=== PATIENT | female | born 1940 | race Caucasian/White ===

== ENCOUNTER 2018-07-24 13:52 | Observation (INO) | payer MEDICARE, MEDICAID ==
[~2018-07-24] VITALS: Ht 160 cm; Wt 100.8 kg
[~2018-07-24 13:52] MED LIST changes: -FLUO-177 PO; -HYDR-4228 PO; -LEVO175T42 PO; -LIDO700A19 TP
[2018-07-24] MEDS ORDERED: NS(*) 0.9% 500 ML BAG 500 ML IV ONE (14:08)
--- NOTE | 2018-07-24 14:08 | ER Report ---
History and Physical Time Seen By MD: 14:00 Hx. of Stated Complaint: patient fell a couple days ago, patient states that she doesnt remember the fall but her left hip hurts; patients insurance healthcare consultant called because the patient is weak and increased lethargic HPI/ROS CHIEF COMPLAINT: Fall, increasing weakness HISTORY OF PRESENT ILLNESS: 78-year-old female patient presents to emergency room with complaint of fall and weakness. Patient states that she fell 2 days ago. She states she is unable to recall the fall, but she does have hip pain and abdominal pain. Patient states that she's not having nausea, vomiting or diarrh ea. Caregiver states that she has had increasing weakness since her fall. Patient denies any shortness of breath, chest pain. Patient states she does have some mild left hip pain. REVIEW OF SYSTEMS: Respiratory: No cough, no dyspnea. Cardiovascular: No chest pain, no palpitations. Gastrointestinal: No vomiting, no abdominal pain. Musculoskeletal: As noted above Allergies: Coded Allergies: Penicillins (Unverified Allergy, Unknown, 09/12/16) Home Meds Active Scripts Diphenhydramine Hcl (DIPHENHYDRAMINE HCL) 25 Mg Capsule, 25 MG PO Q6H PRN for a llergic reaction, #30 CAPSULE Prov:FREDERICK ALBERTS MD 08/27/16 Trazodone Hcl (TRAZODONE HCL) 50 Mg Tablet, 25 MG PO QHS, #30 TAB Prov:FREDERICK ALBERTS MD 08/27/16 Ranitidine Hcl (RANITIDINE HCL) 150 Mg Tablet, 150 MG PO BID, #60 TAB Prov:FREDERICK ALBERTS MD 08/27/16 Epinephrine (EPIPEN 2-RJ) 0.3 Mg/0.3 Ml Pen.injctr, 0.3 MG IM ONLY Q5MIN PRN for increased tongue swelling, #1 BOX 6 Refills Prov:FREDERICK ALBERTS MD 08/27/16 Reported Medications Levothyroxine Sodium (LEVOTHYROXINE SODIUM) 100 Mcg Tablet, 150 MCG PO QDAY, TAB 08/24/16 Past Medical/Surgical History Patient has a past medical history of seizures, COPD, arthritis, hypothyroidism, marijuana abuse, alcohol abuse. Patient has a surgical history of tubal ligation, hernia repair, hysterectomy. Reviewed Nurses Notes: Yes Hx Smoking: No Smoking Status: Former Smoker Exposure to Second Hand Smoke?: No Hx Substance Use Disorder: Yes (pot) Hx Alcohol Use: Yes Constitutional Vital Sign - Last 24 Hours 07/24/18 07/24/18 07/24/18 13:55 14:26 15:11 Temp 97.5 Pulse 81 Resp 18 B/P (MAP) 134/89 Pulse Ox 92 91 O2 Delivery Room Air Oxy Mask O2 Flow Rate 6.0 8.0 Physical Exam General Appearance: The patient is alert, has no immediate need for airway protection and no current signs of toxicity. Respiratory: Chest is non tender, lungs are clear to auscultation. Cardiac: regular rate and rhythm Gastrointestinal: Abdomen is soft and tender in the left upper and lower quadrants, no masses, bowel sounds normal. Musculoskeletal: Neck: Neck is supple and non tender. Extremities have full range of motion and are non tender. Tenderness to the left hip. Skin: No rashes or lesions. DIFFERENTIAL DIAGNOSIS: After history and physical exam differential diagnosis was considered for contusion, fracture, urinary tract infection, sepsis, [place]. Medical Decision Making Data Points Result Diagram: 07/24/18 1411 07/24/18 1411 Laboratory Hematology Test 07/24/18 14:11 07/24/18 14:25 Red Blood Count 5.75 M/uL (4.17-5.56) Mean Corpuscular Volume 86.7 fL (80.0-96.0) Mean Corpuscular Hemoglobin 28.6 pg (26.0-33.0) Mean Corpuscular Hemoglobin Concent 33.0 g/dL (32.0-36.0) Red Cell Distribution Width 13.4 % (11.5-14.5) Mean Platelet Volume 7.9 fL (7.2-11.1) Neutrophils (%) (Auto) 53.9 % (39.4-72.5) Lymphocytes (%) (Auto) 29.4 % (17.6-49.6) Monocytes (%) (Auto) 12.3 % (4.1-12.4) Eosinophils (%) (Auto) 3.0 % (0.4-6.7) Basophils (%) (Auto) 1.4 % (0.3-1.4) Nucleated RBC Relative Count (auto) 0.0 /100WBC Neutrophils # (Auto) 3.8 K/uL (2.0-7.4) Lymphocytes # (Auto) 2.0 K/uL (1.3-3.6) Monocytes # (Auto) 0.9 K/uL (0.3-1.0) Eosinophils # (Auto) 0.2 K/uL (0.0-0.5) Basophils # (Auto) 0.1 K/uL (0.0-0.1) Nucleated RBC Absolute Count (auto) 0.00 K/uL Prothrombin Time 12.3 seconds (12.0-14.4) Prothromb Time International Ratio 0.92 Activated Partial Thromboplast Time 30 seconds (23-35) Sodium Level 139 mmol/L (137-145) Potassium Level 4.2 mmol/L (3.5-5.0) Chloride Level 104 mmol/L (98-107) Carbon Dioxide Level 28 mmol/L (22-31) Blood Urea Nitrogen 11 mg/dl (7-18) Creatinine 0.90 mg/dl (0.52-1.04) Glomerular Filtration Rate Calc > 60.0 Random Glucose 108 mg/dl (75-110) Lactate 1.3 mmol/L (0.7-2.1) Calcium Level 8.8 mg/dl (8.4-10.2) Total Bilirubin 0.3 mg/dl (0.2-1.3) Aspartate Amino Transf (AST/SGOT) 19 U/L (0-35) Alanine Aminotransferase (ALT/SGPT) 23 U/L (0-56) Alkaline Phosphatase 75 U/L (0-126) Troponin I < 0.012 ng/ml Total Protein 6.6 g/dl (6.3-8.2) Albumin 3.7 g/dl (3.5-5.0) Serum Alcohol < 10 mg/dl Urine Color Yellow Urine Clarity Cloudy Urine pH 5.0 pH (4.8-9.5) Urine Specific Wilson 1.024 Urine Protein Negative mg/dL (NEGATIVE) Urine Glucose (UA) Negative mg/dL (NEGATIVE) Urine Ketones Negative mg/dL (NEGATIVE) Urine Blood Negative (NEGATIVE) Urine Nitrite Negative (NEGATIVE) Urine Bilirubin Negative (NEGATIVE) Urine Urobilinogen 2.0 mg/dL (0.2-1.9) Urine Leukocyte Esterase Negative (NEGATIVE) Urine RBC None /HPF (0-2/HPF) Urine WBC 1 /HPF (0-5/HPF) Urine Squamous Epithelial Cells Few /LPF (NONE-FEW) Urine Calcium Oxalate Crystals Few /HPF (NONE) Urine Bacteria Few /HPF (NONE-FEW) Urine Mucus Few /HPF (NONE-FEW) Urine Opiates Screen Negative Urine Barbiturates Screen Negative Ur Tricyclic Antidepressants Screen Negative Urine Phencyclidine Screen Negative Urine Amphetamines Screen Negative Urine Benzodiazepines Screen Positive Urine Cocaine Screen Negative Urine Cannabinoids Screen Positive Chemistry Test 07/24/18 14:11 07/24/18 14:25 White Blood Count 7.0 k/uL (4.5-11.0) Red Blood Count 5.75 M/uL (4.17-5.56) Hemoglobin 16.5 g/dL (12.0-16.0) Hematocrit 49.9 % (34.0-47.0) Mean Corpuscular Volume 86.7 fL (80.0-96.0) Mean Corpuscular Hemoglobin 28.6 pg (26.0-33.0) Mean Corpuscular Hemoglobin Concent 33.0 g/dL (32.0-36.0) Red Cell Distribution Width 13.4 % (11.5-14.5) Platelet Count 354 K/uL (150-450) Mean Platelet Volume 7.9 fL (7.2-11.1) Neutrophils (%) (Auto) 53.9 % (39.4-72.5) Lymphocytes (%) (Auto) 29.4 % (17.6-49.6) Monocytes (%) (Auto) 12.3 % (4.1-12.4) Eosinophils (%) (Auto) 3.0 % (0.4-6.7) Basophils (%) (Auto) 1.4 % (0.3-1.4) Nucleated RBC Relative Count (auto) 0.0 /100WBC Neutrophils # (Auto) 3.8 K/uL (2.0-7.4) Lymphocytes # (Auto) 2.0 K/uL (1.3-3.6) Monocytes # (Auto) 0.9 K/uL (0.3-1.0) Eosinophils # (Auto) 0.2 K/uL (0.0-0.5) Basophils # (Auto) 0.1 K/uL (0.0-0.1) Nucleated RBC Absolute Count (auto) 0.00 K/uL Prothrombin Time 12.3 seconds (12.0-14.4) Prothromb Time International Ratio 0.92 Activated Partial Thromboplast Time 30 seconds (23-35) Glomerular Filtration Rate Calc > 60.0 Lactate 1.3 mmol/L (0.7-2.1) Calcium Level 8.8 mg/dl (8.4-10.2) Total Bilirubin 0.3 mg/dl (0.2-1.3) Aspartate Amino Transf (AST/SGOT) 19 U/L (0-35) Alanine Aminotransferase (ALT/SGPT) 23 U/L (0-56) Alkaline Phosphatase 75 U/L (0-126) Troponin I < 0.012 ng/ml Total Protein 6.6 g/dl (6.3-8.2) Albumin 3.7 g/dl (3.5-5.0) Serum Alcohol < 10 mg/dl Urine Color Yellow Urine Clarity Cloudy Urine pH 5.0 pH (4.8-9.5) Urine Specific Wilson 1.024 Urine Protein Negative mg/dL (NEGATIVE) Urine Glucose (UA) Negative mg/dL (NEGATIVE) Urine Ketones Negative mg/dL (NEGATIVE) Urine Blood Negative (NEGATIVE) Urine Nitrite Negative (NEGATIVE) Urine Bilirubin Negative (NEGATIVE) Urine Urobilinogen 2.0 mg/dL (0.2-1.9) Urine Leukocyte Esterase Negative (NEGATIVE) Urine RBC None /HPF (0-2/HPF) Urine WBC 1 /HPF (0-5/HPF) Urine Squamous Epithelial Cells Few /LPF (NONE-FEW) Urine Calcium Oxalate Crystals Few /HPF (NONE) Urine Bacteria Few /HPF (NONE-FEW) Urine Mucus Few /HPF (NONE-FEW) Urine Opiates Screen Negative Urine Barbiturates Screen Negative Ur Tricyclic Antidepressants Screen Negative Urine Phencyclidine Screen Negative Urine Amphetamines Screen Negative Urine Benzodiazepines Screen Positive Urine Cocaine Screen Negative Urine Cannabinoids Screen Positive Coagulation Test 07/24/18 14:11 Prothrombin Time 12.3 seconds Prothromb Time International Ratio 0.92 Activated Partial Thromboplast Time 30 seconds Toxicology Test 07/24/18 14:11 07/24/18 14:25 Serum Alcohol < 10 mg/dl Urine Opiates Screen Negative Urine Barbiturates Screen Negative Ur Tricyclic Antidepressants Screen Negative Urine Phencyclidine Screen Negative Urine Amphetamines Screen Negative Urine Benzodiazepines Screen Positive Urine Cocaine Screen Negative Urine Cannabinoids Screen Positive Urinalysis Test 07/24/18 14:25 Urine Color Yellow Urine Clarity Cloudy Urine pH 5.0 pH (4.8-9.5) Urine Specific Wilson 1.024 Urine Protein Negative mg/dL (NEGATIVE) Urine Glucose (UA) Negative mg/dL (NEGATIVE) Urine Ketones Negative mg/dL (NEGATIVE) Urine Blood Negative (NEGATIVE) Urine Nitrite Negative (NEGATIVE) Urine Bilirubin Negative (NEGATIVE) Urine Urobilinogen 2.0 mg/dL (0.2-1.9) Urine Leukocyte Esterase Negative (NEGATIVE) Urine RBC None /HPF (0-2/HPF) Urine WBC 1 /HPF (0-5/HPF) Urine Squamous Epithelial Cells Few /LPF (NONE-FEW) Urine Calcium Oxalate Crystals Few /HPF (NONE) Urine Bacteria Few /HPF (NONE-FEW) Urine Mucus Few /HPF (NONE-FEW) EKG/Imaging EKG Interpretation 12 lead EKG: Rhythm: normal sinus rhythm with a ventricular rate of 73 beats for minute Gabbs: normal QRS: normal ST segments: normal Imaging CHEST/AB/PELV W/CONTRAST HISTORY: fall, pain to left chest, abdomen ADDITIONAL HISTORY: None. TECHNIQUE: Following administration of IV contrast axial images acquired through the chest abdomen and pelvis during the portal venous phase. Coronal and sagittal reformatting was also performed.Dose Lowering Technique One of the following dose optimization techniques was utilized in the performance of this exam: Automated exposure control; adjustment of the mA and/or kV according to the patient's size; or use of an iterative reconstruction technique. Specific details can be referenced in the facility's radiology CT exam operational policy. CONTRAST: 75 mL Isovue-370 COMPARISON: CTA chest September 22, [address] lumbar spine July 13, 2016 FINDINGS: CHEST: Lungs/Pleura: There is motion artifact present. No gross evidence of focal pulmonary consolidation, pleural effusion, pneumothorax or pneumomediastinum. Mediastinum/lymph nodes: Negative. Heart/vessels: There mild calcifications in the aortic arch and branch vessels Bones/soft tissues: There are multiple old appearing bilateral rib fractures ABDOMEN AND PELVIS: Hepatobiliary: Negative. Spleen: Calcified granuloma Pancreas: Negative. Adrenals: Negative. Kidneys ureters and bladder : There bilateral renal hypodensities most are too small to characterize by CT although may represent cysts the largest cyst along the anterior aspect of the right kidney measuring 1.3 cm in diameter and does appear to represent a cyst by CT Hounsfield units Genitalia: There are postsurgical changes from hysterectomy. There is a 3.2 cm left ovarian cyst GI: There is an anastomotic staple line in the sigmoid colon. There is a small hiatal hernia Vessels/spaces/nodes: There are moderate vascular calcifications in the abdominal aorta and branch vessels Bones/soft tissues: There is a moderate to severe compression fracture of L2. There was a mild compression fracture of this vertebral body on the prior CT lumbar spine dated July 13, 2016 . There are moderate spondylotic changes L4-5 and L5-S1. There is no demonstration of an acute pelvic or hip fracture. There is soft tissue edema seen in the subcutaneous fat along the anterior left lateral mid abdominal wall. In the subcutaneous fat along the lower left abdomen there is an ovoid soft tissue density process measuring 6.1 x 4.5 x 1.9 cm likely a subcutaneous hematoma Additional findings: None pertinent. IMPRESSION: Multiple old appearing bilateral rib fractures There is moderate severe compression fracture of L2 vertebral body. There was a mild compression fracture in this location on a prior CT dated July 13 6. No demonstration of an acute pelvic or hip fracture. There is soft tissue edema in the subcutaneous fat along the anterior left lateral mid abdominal wall. Also the subcutaneous fat along the lower left abdomen is an ovoid soft tissue density process likely representing a subcutaneous hematoma 3.2 cm left ovarian cyst Small hiatal hernia Additional chronic or nonemergent findings as described Report Dictated By: Brit Vance MD at 07/24/2018 3:17 PM Report E-Signed By: Brit Vance MD at 07/24/2018 4:[address] Head without contrast Indication: Fall and hit head. Comparison: 08/24/2016. Technique: Axial CT images were obtained through the brain from the skull base to the vertex without administration of IV contrast. Reformatted coronal and sagittal images were also obtained. One of the following dose optimization techniques was utilized in the performa nce of this exam: automated exposure control; adjustment of the mA and/or kV according to the patient's size; or use of an iterative reconstruction technique. Specific details can be referenced in the facility's radiology CT exam operational policy. Findings: No evidence of mass, mass effect, or midline shift. No acute intracranial hemorrhage or acute territorial infarction. No extra-axial fluid collection or hydrocephalus. Age-related cerebral atrophy. Mild periventricular white matter ischemic changes consistent small vessel disease. Sanders/white matter differentiation appears normal. Bony structures show no fractures or lesions. Mild rightward deviation nasal septum. The visualized paranasal sinuses and mastoid air cells are clear. IMPRESSION: 1. Senescent changes without acute abnormality. Report Dictated By: Grey Pike at 07/24/2018 3:22 PM Report E-Signed By: Grey Pike at 07/24/2018 3:27 PM ED Course/Re-evaluation ED Course Patient was admitted to exam room, history and physical were obtained. Differential diagnoses were considered. On examination patient had tenderness to the left side of the abdomen, no chest pain, was tender to the scalp, as well as the left hip. Patient did have a fall approximately 2 days ago. A CBC, CMP, urinalysis, drug screen were done. Labs were unremarkable except for the drug screen, which did show positive cannabis as well as positive benzodiazepines. CT scan of the head and chest abdomen pelvis were done. Head was negative, chest abdomen pelvis were negative for any acute processes, however they did note that there was a worsening of the compression fracture L2 which currently is moderate ly severe. I discussed the findings with the patient. Patient states she would prefer to go home. We did attempt to get the patient up, however the patient needed significant amounts of help with ambulation. As a result of that we will go ahead and admit her. I discussed the case with Dr. Mcgee, hospitalist, who agreed to accept the patient for admission. I do have concerns that the patient may have overdone it with the benzodiazepines and has caused some hypoxia, patient is currently on 8 L here in the emergency room and satting in the mid to low 90s. I anticipate that as she clears that out of her system that she will start to feel better and will be allowed to be discharged home. Decision to Disposition Date: Jul 24, 2018 Decision to Disposition Time: 16:56 Depart Departure Latest Vital Signs Vital Signs Date Time Temp Pulse Resp B/P (MAP) Pulse Ox O2 Delivery O2 Flow Rate FiO2 07/24/18 15:11 8.0 07/24/18 14:26 91 Oxy Mask 07/24/18 13:55 97.5 81 18 134/89 Impression: Primary Impression: Compression fracture Additional Impressions: Hypoxia Fall Condition: Condition Unchanged Disposition: Admitted from ER Problem Qualifiers Additional Impressions: Fall Encounter type: initial encounter Qualified Codes: W19.XXXA - Unspecified fall, initial encounter NIC WHITE Jul 24, 2018 14:08
[2018-07-24] MEDS ORDERED: IOPAMIDOL 76% 75 ML INFUS BTL 75 ML ONE (14:22)
[2018-07-24 14:23] LABS: PLATELET COUNT, AUTOMATED 354 K/uL (150-450)
[2018-07-24 14:27] LABS: INR 0.92
--- NOTE | 2018-07-24 15:30 | RADIOLOGY IMAGING REPORT ---
FACILITY: [facility] - [place] PATIENT NAME: Ankita Rivera : 1940 MR: [id number] V: [id number] EXAM DATE: ORDERING PHYSICIAN: NIC WHITE TECHNOLOGIST: Location: [facility] - [place] Patient: Ankita Rivera : 1940 Visit/Account:[id number] Date of Sevice: 07/24/2018 CT Head without contrast Indication: Fall and hit head. Comparison: 08/24/2016. Technique: Axial CT images were obtained through the brain from the skull base to the vertex without administration of IV contrast. Reformatted coronal and sagittal images were also obtained. One of the following dose optimization techniques was utilized in the performance of this exam: autom ated exposure control; adjustment of the mA and/or kV according to the patient's size; or use of an i terative reconstruction technique. Specific details can be referenced in the facility's radiology CT exam operational policy. Findings: No evidence of mass, mass effect, or midline shift. No acute intracranial hemorrhage or acute territorial infarction. No extra-axial fluid collection or hydrocephalus. Age-related cerebral atrophy. Mild periventricula r white matter ischemic changes consistent small vessel disease. Sanders/white matter differentiation a ppears normal. Bony structures show no fractures or lesions. Mild rightward deviation nasal septum. The visualized paranasal sinuses and mastoid air cells are clear. IMPRESSION: 1. Senescent changes without acute abnormality. Report Dictated By: Grey Pike at 07/24/2018 3:22 PM Report E-Signed By: Grey Pike at 07/24/2018 3:27 PM WSN:[email or web address]
--- NOTE | 2018-07-24 16:16 | RADIOLOGY IMAGING REPORT ---
FACILITY: [facility] - [place] PATIENT NAME: Ankita Rivera : 1940 MR: [id number] V: [id number] EXAM DATE: ORDERING PHYSICIAN: NIC WHITE TECHNOLOGIST: Location: [facility] - [place] Patient: Ankita Rivera : 1940 Visit/Account:[id number] Date of Sevice: 07/24/2018 CHEST/AB/PELV W/CONTRAST HISTORY: fall, pain to left chest, abdomen ADDITIONAL HISTORY: None. TECHNIQUE: Following administration of IV contrast axial images acquired through the chest abdomen a nd pelvis during the portal venous phase. Coronal and sagittal reformatting was also performed.Dose Lowering Technique One of the following dose optimization techniques was utilized in the performance of this exam: Autom ated exposure control; adjustment of the mA and/or kV according to the patient's size; or use of an i terative reconstruction technique. Specific details can be referenced in the facility's radiology C T exam operational policy. CONTRAST: 75 mL Isovue-370 COMPARISON: CTA chest September 22, [address] lumbar spine July 13, 2016 FINDINGS: CHEST: Lungs/Pleura: There is motion artifact present. No gross evidence of focal pulmonary consolidation, pleural effusion, pneumothorax or pneumomediastinum. Mediastinum/lymph nodes: Negative. Heart/vessels: There mild calcifications in the aortic arch and branch vessels Bones/soft tissues: There are multiple old appearing bilateral rib fractures ABDOMEN AND PELVIS: Hepatobiliary: Negative. Spleen: Calcified granuloma Pancreas: Negative. Adrenals: Negative. Kidneys ureters and bladder : There bilateral renal hypodensities most are too small to characterize by CT although may represent cysts the largest cyst along the anterior aspect of the right kidney reinier suring 1.3 cm in diameter and does appear to represent a cyst by CT Hounsfield units Genitalia: There are postsurgical changes from hysterectomy. There is a 3.2 cm left ovarian cyst GI: There is an anastomotic staple line in the sigmoid colon. There is a small hiatal hernia Vessels/spaces/nodes: There are moderate vascular calcifications in the abdominal aorta and branch v essels Bones/soft tissues: There is a moderate to severe compression fracture of L2. There was a mild comp ression fracture of this vertebral body on the prior CT lumbar spine dated July 13, 2016 . Ther e are moderate spondylotic changes L4-5 and L5-S1. There is no demonstration of an acute pelvic or h ip fracture. There is soft tissue edema seen in the subcutaneous fat along the anterior left lateral mid abdominal wall. In the subcutaneous fat along the lower left abdomen there is an ovoid soft tissue density pr ocess measuring 6.1 x 4.5 x 1.9 cm likely a subcutaneous hematoma Additional findings: None pertinent. IMPRESSION: Multiple old appearing bilateral rib fractures There is moderate severe compression fracture of L2 vertebral body. There was a mild compression fra cture in this location on a prior CT dated July 13, 2016. No demonstration of an acute pelvic or hip fracture. There is soft tissue edema in the subcutaneous fat along the anterior left lateral mid abdominal wall . Also the subcutaneous fat along the lower left abdomen is an ovoid soft tissue density process lik ramos representing a subcutaneous hematoma 3.2 cm left ovarian cyst Small hiatal hernia Additional chronic or nonemergent findings as described Report Dictated By: Brit Vance MD at 07/24/2018 3:17 PM Report E-Signed By: Brit Vance MD at 07/24/2018 4:11 PM WSN:[email or web address]
[2018-07-24] MEDS ORDERED: FLUSH 10 ML SYR IVP PRN (17:35)
[2018-07-24] MEDS ORDERED: ONDANSETRON 4 MG/2 ML VIAL IVP PRN (17:35)
[2018-07-24] MEDS: NS(*) 0.9% 1000 ML BAG 1,000 ML IV PRN (18:05)
[2018-07-24] MEDS ORDERED: HYDR-4228 PO (18:31)
[2018-07-24] MEDS ORDERED: FLUO-177 PO (18:31)
[2018-07-24] MEDS ORDERED: TRAZ100T31 PO (18:31)
[2018-07-24] MEDS ORDERED: TRAM-420 PO (18:31)
[2018-07-24] MEDS ORDERED: LEVO175T42 PO (18:31)
[2018-07-24 18:36] VITALS: BP 123/50
--- NOTE | 2018-07-24 19:39 | History & Physical ---
History of Present Illness Chief Complaint Hypoxia History of Present Illness 78F presented to ER with complaint of fall 2 days ago. Found to be lethargic and periodically hypoxic. Labs and imaging are all WNL. She was recommended for admission based on hypoxia. UDS positive for marijuana and benzodiazepines, she denies using either for several weeks. She reports she uses O2 at home but is unable to tell me how much. Patient appears intoxicated and has periodic apneic episodes which are causing hypoxia. History Unable To Obtain Past Medical: Unable to Obtain/Update Home Meds Active Scripts Diphenhydramine Hcl (DIPHENHYDRAMINE HCL) 25 Mg Capsule, 25 MG PO Q6H PRN for allergic reaction, #30 CAPSULE Prov:FREDERICK ALBERTS MD 08/27/16 Epinephrine (EPIPEN 2-RJ) 0.3 Mg/0.3 Ml Pen.injctr, 0.3 MG IM ONLY Q5MIN PRN for increased tongue swelling, #1 BOX 6 Refills Prov:FREDERICK ALBERTS MD 08/27/16 Reported Medications Tramadol Hcl (TRAMADOL HCL) 50 Mg Tablet, 1 TAB PO Q6H PRN for PAIN, TAB 07/24/18 Fluoxetine Hcl (FLUOXETINE HCL) 20 Mg Capsule, 40 MG PO QAM, CAPSULE 07/24/18 Hydroxyzine Hcl (HYDROXYZINE HCL) 50 Mg Tablet, 50 MG PO BID PRN for ANXIETY 07/24/18 Trazodone Hcl (TRAZODONE HCL) 100 Mg Tablet, 1-2 TAB PO HS, TAB PRN PER RX AT [facility] 07/24/18 Levothyroxine Sodium (LEVOTHYROXINE SODIUM) 175 Mcg Tablet, 175 MCG PO QAM 07/24/18 Discontinued Reported Medications Levothyroxine Sodium (LEVOTHYROXINE SODIUM) 100 Mcg Tablet, 150 MCG PO QDAY, TAB 08/24/16 Discontinued Scripts Trazodone Hcl (TRAZODONE HCL) 50 Mg Tablet, 25 MG PO QHS, #30 TAB Prov:FREDERICK ALBERTS MD 08/27/16 Ranitidine Hcl (RANITIDINE HCL) 150 Mg Tablet, 150 MG PO BID, #60 TAB Prov:FREDERICK ALBERTS MD 08/27/16 Allergies: Coded Allergies: Penicillins (Unverified Allergy, Unknown, 09/12/16) Hx Smoking: No Smoking Status: Former Smoker Exposure to Second Hand Smoke?: No Hx Alcohol Use: Yes Hx Substance Use Disorder: Yes (pot) Review of Systems All Systems Reviewed/Normal: Yes, Except as Noted Cardiovascular: No Chest Pain Respiratory: No Shortness of Breath, No Cough Exam Vital Signs Vital Signs Date Time Temp Pulse Resp B/P (MAP) Pulse Ox O2 Delivery O2 Flow Rate FiO2 07/24/18 18:41 99 Nasal Cannula 5.0 07/24/18 18:37 74 07/24/18 18:36 97.4 12 123/50 (74) General Appearance: Awake, No Acute Distress, Afebrile Neuro: No Gross deficits ENT: Normal Cardiovascular: Normal Rhythm & Peripheral Pulses Respiratory: No Respiratory Distress GI: Abd Soft and Non-Tender Musculoskeletal: No Weakness/Pain Extremities: Soft and Non Tender, Warm, Pulses, Perfused Medical Decision Making Data Points Result Diagram: 07/24/18 1411 07/24/18 1411 Assessment and Plan Problems: (1) Hypoxia Status: Acute Assessment & Plan: ABG shows high pO2. Appears to saturate well while awake but when falls asleep needs increased O2. Will attempt to find out if she really has O2 at home and how much. (2) Compression fracture Status: Acute Assessment & Plan: L2 compression fracture, pain appears to be limited to L side. Has hematoma in abdominal wall on imaging in that area. Will try Lidoderm patch. (3) Polysubstance abuse Assessment & Plan: UDS positive for marijuana and benzodiazepines. Appears intoxicated and having periodic episodes apnea. Venous Thromboembolism Antithrombotics Is Pt On Any Antithrombotics?: Yes Exam Sepsis Risk: No Definite Risk BEATTY JANELLE GOOD DO Jul 24, 2018 19:39
[2018-07-24] MEDS: LIDOCAINE 5% PATCH TP SCH (20:05)
[2018-07-24] MEDS: PATCH REMOVAL 1 EA TP SCH (21:00)
[2018-07-24] MEDS: ACETAMINOPHEN 325 MG TAB PO PRN (22:07)
[2018-07-24 23:23] VITALS: BP 123/76
[2018-07-25 04:05] VITALS: BP 109/82
[2018-07-25] MEDS: NS(*) 0.9% 1000 ML BAG 1,000 ML IV PRN (04:25)
--- NOTE | 2018-07-25 05:31 | EKG ---
FACILITY: [facility] [place] PATIENT NAME: EMILIE LOCKHART : [id number] MR: [id number] V: [id number] EXAM DATE: ORDERING PHYSICIAN: NIC WHITE TECHNOLOGIST: Test Reason : Blood Pressure : / mmHG Vent. Rate : 073 BPM Atrial Rate : 073 BPM P-R Int : 132 ms QRS Dur : 082 ms QT Int : 428 ms P-R-T Axes : 030 013 062 degrees QTc Int : 471 ms Normal sinus rhythm Normal ECG When compared with ECG of 24-AUG-2016 12:35, No significant change was found Confirmed by Darron Hicks ([id number]) on 07/25/2018 7:30:04 AM Referred By: Confirmed By:Darron Navarrete
[2018-07-25 06:01] LABS: PLATELET COUNT, AUTOMATED 286 K/uL (150-450)
[2018-07-25 08:47] VITALS: BP 123/84
[2018-07-25] MEDS: ENOXAPARIN 40 MG/0.4ML SYR SC SCH (08:50)
[2018-07-25] MEDS: LIDOCAINE 5% PATCH TP SCH (08:50)
[2018-07-25] MEDS ORDERED: NS(*) 0.9% 1000 ML BAG 1,000 ML IV PRN (09:23)
--- NOTE | 2018-07-25 11:34 | Hospitalist Progress Note ---
Subjective Progress Notes Subjective She is now much more awake and alert. She does not recall much of valentín events over past 2 days. She now recalls taking two of her Xanax (1mg tabs) "a couple of days ago". Physical Exam Vital Signs Date Time Temp Pulse Resp B/P (MAP) Pulse Ox O2 Delivery O2 Flow Rate FiO2 07/25/18 08:47 97.6 64 16 123/84 (97) 94 Nasal Cannula 2.0 Intake and Output 07/25/18 07:00 Intake Total 1340 ml Output Total 100 ml Balance 1240 ml Intake Oral 360 ml IV Total 980 ml Output Urine Total 100 ml General Appearance: Alert, Awake Cardiovascular: Regular Rate and Rhythm Respiratory: Clear to Auscultation GI: Soft and Non-Tender Extremities: Warm, Perfused Result Diagram: 07/25/1852107/25/18521 Assessment and Plan Problems: (1) Hypoxia Status: Acute Assessment & Plan: ABG showed high pO2. Appears to saturate well while awake, but when falls asleep needs increased O2. She may have sleep related hypoxia/DEBBI and may need further evaluation. It appears she probably had an unintentional OD with the Xanax causing some respiratory suppression. I discussed this with the patient and she reports understanding. (2) Compression fracture Status: Acute Assessment & Plan: L2 compression fracture, pain appears to be limited. She has a small hematoma in abdominal wall on imaging in that area. Will use Lidoderm patch. (3) Polysubstance abuse Assessment & Plan: Urine Drug Screen positive for marijuana and benzodiazepines. It appears she may have been having periodic episodes apnea. She appears much more awake and alert. Exam Sepsis Risk: No Definite Risk SONAM ALBERTS MD Jul 25, 2018 11:34
[2018-07-25 11:53] VITALS: BP 141/80
--- NOTE | 2018-07-25 14:14 | NUR ---
Physical Therapy Impression PT eval complete. Pt required encouragement to participate in therapy evaluation. PT provided cues for log roll technique and pt completed with SBA. Stand pivot transfer from bed to chair completed with CGA and use of RW. Pt declined further mobility at this time. PT encouraged pt to start ambulating to bathroom with nursing staff. Physical Therapy Goals 1: Pt to complete bed mobility with Benjy 2: pt to complete transfers with SBA and least restrictive AD 3: Pt to ambulate 30' with SBA and least restrictive AD Patient's Goals
[2018-07-25] MEDS: ACETAMINOPHEN 325 MG TAB PO PRN (15:05)
[2018-07-25 15:06] VITALS: BP 150/83
[2018-07-25 16:55] VITALS: Ht 160 cm; Wt 100.8 kg
[2018-07-25] MEDS: PATCH REMOVAL 1 EA TP SCH (20:32)
[2018-07-25 20:44] VITALS: BP 143/73
[2018-07-26 00:45] VITALS: BP 128/77
[2018-07-26 04:28] VITALS: BP 127/63
[2018-07-26] MEDS: ACETAMINOPHEN 325 MG TAB PO PRN (06:43)
[2018-07-26 07:42] VITALS: BP 138/76
[2018-07-26] MEDS: ENOXAPARIN 40 MG/0.4ML SYR SC SCH (08:55)
[2018-07-26] MEDS: LIDOCAINE 5% PATCH TP SCH (08:55)
[2018-07-26] MEDS ORDERED: TRAM-420 PO (10:41)
[2018-07-26] MEDS ORDERED: LIDO700A19 TP (10:41)
--- NOTE | 2018-07-26 10:46 | Hospitalist Depart ---
Discharge Summary Reason for Hosp/Final Diag: (1) Hypoxia Status: Acute Hospital Course & Plan: She presented with ABG which showed high pO2, she appeared to saturate well while awake, but required increased oxygen during sleep. She may have sleep related hypoxia/DEBBI and may need further evaluation. It appears she probably had an unintentional OD with the Xanax causing some respiratory suppression. I discussed this with the patient and she reports understanding. (2) Compression fracture Status: Acute Hospital Course & Plan: L2 compression fracture, pain appears to be limited. She has a small hematoma in abdominal wall on imaging in that area. Will use Lidoderm patch for pain. (3) Polysubstance abuse Hospital Course & Plan: Urine Drug Screen positive for marijuana and benzodiazepines. It appears she may have been having periodic episodes apnea. She appears much more awake and alert. She was advised to stop taking Xanax. She will use Tramadol for pain. She will follow up with Dr. Pearce. Departure Latest Vital Signs Vital Signs 07/26/18 07/26/18 07:42 08:09 Temp 98.1 Pulse 59 Resp 20 B/P (MAP) 138/76 (96) Pulse Ox 92 O2 Delivery Nasal Cannula O2 Flow Rate 2.0 Weight (Pounds): 222 Weight (Ounces): 5.0 Result Diagram: 07/25/1852107/25/18521 Condition: Improved Discharge: Home, Self Care Discharge Instructions Home Meds Active Scripts Lidocaine (Lidocaine) 5 % Adh..patch, 1 EACH TP QDAY, #14 PATCH Prov:KATHY GARCIA [employer]ERK [employer] 07/26/18 Tramadol Hcl (TRAMADOL HCL) 50 Mg Tablet, 1 TAB PO Q6H PRN for PAIN, #20 TAB Prov:KATHY GARCIA [employer] 07/26/18 Diphenhydramine Hcl (DIPHENHYDRAMINE HCL) 25 Mg Capsule, 25 MG PO Q6H PRN for allergic reaction, #30 CAPSULE Prov:FREDERICK ALBERTS MD 08/27/16 Epinephrine (EPIPEN 2-RJ) 0.3 Mg/0.3 Ml Pen.injctr, 0.3 MG IM ONLY Q5MIN PRN for increased tongue swelling, #1 BOX 6 Refills Prov:FREDERICK ALBERTS MD 08/27/16 Reported Medications Fluoxetine Hcl (FLUOXETINE HCL) 20 Mg Capsule, 40 MG PO QAM, CAPSULE 07/24/18 Hydroxyzine Hcl (HYDROXYZINE HCL) 50 Mg Tablet, 50 MG PO BID PRN for ANXIETY 07/24/18 Trazodone Hcl (TRAZODONE HCL) 100 Mg Tablet, 1-2 TAB PO HS PRN for sleep, TAB PRN PER RX AT [facility] 07/24/18 Levothyroxine Sodium (LEVOTHYROXINE SODIUM) 175 Mcg Tablet, 175 MCG PO QAM 07/24/18 Discontinued Reported Medications Levothyroxine Sodium (LEVOTHYROXINE SODIUM) 100 Mcg Tablet, 150 MCG PO QDAY, TAB 08/24/16 Discontinued Scripts Trazodone Hcl (TRAZODONE HCL) 50 Mg Tablet, 25 MG PO QHS, #30 TAB Prov:FREDERICK ALBERTS MD 08/27/16 Ranitidine Hcl (RANITIDINE HCL) 150 Mg Tablet, 150 MG PO BID, #60 TAB Prov:FREDERICK ALBERTS MD 08/27/16 Diet: Regular Activity: As Tolerated Special Instructions: Stop taking Xanax. Use tramadol and Lidocaine patch for pain. Follow up with Dr. Pearce in 1-2 weeks. Copies to: CHRISSY PEARCE DO ; Venous Thromboembolism Antithrombotics Is Pt On Any Antithrombotics?: Yes KATHY GARCIA CLERK [employer]ODUCTION Jul 26, 2018 10:46
[2018-07-27] MEDS ORDERED: INFLUENZA VIRUS VAC 0.5ML SYR IM ONLY ONE (09:00)
== END 2018-07-26 10:42 | disposition home or self-care (01) ==
LOC: ER 14:02 → INTOOBSV 17:15 → MED 17:15
PROVIDERS: ADMIT Internal Medicine; ATTEND Internal Medicine
DX: S32.029A Unspecified fracture of second lumbar vertebra, initial encounter for closed fracture (principal); W19.XXXA Unspecified fall, initial encounter; R09.02 Hypoxemia; F12.10 Cannabis abuse, uncomplicated; F15.10 Other stimulant abuse, uncomplicated; Z23 Encounter for immunization; G40.909 Epilepsy, unspecified, not intractable, without status epilepticus; J44.9 Chronic obstructive pulmonary disease, unspecified; E03.9 Hypothyroidism, unspecified; Z87.891 Personal history of nicotine dependence
CPT/HCPCS: 36415; 36600; 70450; 71260; 74177; 80305; 81001; 82803; 83605; 84484; 85025; 85610; 85730; 93005; 96360; 96361; 96372; 97161; 99284; A4353; A9270; G0008; G0378; G0480; J1650; J7030; J7040; Q2037; Q9967; 80320; 82040; 82247; 82310; 82374; 82435; 82565; 82947; 84075; 84132; 84155; 84295; 84450; 84460; 84520; 90471; 90674

== ENCOUNTER → 2018-07-24 | Outpatient (CLI) | payer MEDICARE, MEDICAID ==
[~2018-07-24] MED LIST: ALPR-429 PO; CYCL10TA29 PO; DIPH-464 PO; EPIN0.3P15 IM ONLY; FLUO-177 PO; FURO-45 PO; HYDR-4228 PO; LEVO-3 PO; LEVO175T42 PO; LIDO700A19 TP; LIDO700A29 TD; LOR5/325 PO; OXYC-865 PO; PRED-1 ASDIRECTED; PRED-1 PO; RANI-318 PO; SULF-198 PO; TRAM-420 PO; TRAZ100T31 PO; TRAZ50TA34 PO
[2018-07-25 16:55] VITALS: BMI 39.3
== END ==
LOC: AMB 13:24
PROVIDERS: ATTEND Nurse Practitioner
DX: M25.552 Pain in left hip (principal); R10.9 Unspecified abdominal pain; S30.1XXA Contusion of abdominal wall, initial encounter; W01.0XXA Fall on same level from slipping, tripping and stumbling without subsequent striking against object, initial encounter
CPT/HCPCS: A0425; A0429

== ENCOUNTER → 2018-08-08 | Outpatient (CLI) | payer MEDICARE, MEDICAID ==
[2018-07-25 16:55] VITALS: BMI 39.3
[~2018-08-08] MED LIST changes: +FLUO-177 PO; +HYDR-4228 PO; +IOPAMIDOL 76% 100 ML INFUS BTL 100 ML ONE; +LEVO175T42 PO; +LIDO700A19 TP
--- NOTE | 2018-08-08 15:48 | RADIOLOGY IMAGING REPORT ---
FACILITY: [facility] PATIENT NAME: Ankita Rivera : 1940 MR: [id number] V: [id number] EXAM DATE: ORDERING PHYSICIAN: CHRISSY PEARCE TECHNOLOGIST: Location: [facility] [place] Patient: Ankita Rivera : 1940 Visit/Account:[id number] Date of Sevice: 08/08/2018 ABDOMEN/PELVIS W/WO CONTRAST HISTORY: Left upper quadrant mass/swelling TECHNIQUE: Axial images acquired through the abdomen/pelvis both with and without IV contrast.. Pablo nal and sagittal reformatting also performed.Dose Lowering Technique One of the following dose optimization techniques was utilized in the performance of this exam: Autom ated exposure control; adjustment of the mA and/or kV according to the patient's size; or use of an i terative reconstruction technique. Specific details can be referenced in the facility's radiology C T exam operational policy. CONTRAST: 75 mL Isovue-370 COMPARISON: CT chest abdomen pelvis July 24, 2018 FINDINGS: Visualized lung bases: Negative. Hepatobiliary: Negative. Spleen: There is a 6 mm round hypodensity along the dome of the spleen statistically likely represen ts a small cyst or hemangioma Adrenals: Negative. Pancreas: Negative. Kidneys ureters and bladder: Multiple bilateral renal hypodensities appear unchanged likely represent ing cysts Genitalia: Hysterectomy. There is a 2.5 cm left ovarian cyst GI: There is a surgical anastomosis in the sigmoid colon Vessels/spaces/nodes: Moderate vascular calcifications in the abdomen and pelvis. Bones/soft tissues: When compared the prior CT there is been partial resolution of the soft tissue e sia seen along the anterolateral left abdominal wall. The ovoid hypodense collection just superfici al to the lateral abdominal musculature has increased in size and now measures 7.8 x 2 x 6.4 cm likel y related to a subcutaneous hematoma. There is now a layering effect with hyperdense material seen a long the dependent portion.. Moderate severe compression fracture of L2 appears relatively unchanged. Moderate spondylotic change s at L4-5 and L5-S1 again noted Additional findings: None pertinent. IMPRESSION: Moderate severe compression fracture of L2 appears well totally unchanged when compared the prior ian dy There are some partial resolution of the soft tissue edema along the anterolateral left abdominal wal l when compared the prior study. The previously described subcutaneous hematoma has increased in siz e as detailed above Additional chronic findings as described Report Dictated By: Brit Vance MD at 08/08/2018 3:22 PM Report E-Signed By: Brit Vance MD at 08/08/2018 3:43 PM WSN:[id number]
== END ==
LOC: CT 08-07 15:24
PROVIDERS: ATTEND Family Medicine
DX: N83.292 Other ovarian cyst, left side (principal); R19.02 Left upper quadrant abdominal swelling, mass and lump; Z90.710 Acquired absence of both cervix and uterus; Z93.3 Colostomy status; I25.10 Atherosclerotic heart disease of native coronary artery without angina pectoris
CPT/HCPCS: 74178; 82565; Q9967; 36415

== ENCOUNTER 2018-09-06 09:52 | Emergency (ER) | payer MEDICARE, MEDICAID ==
[2018-07-25 16:55] VITALS: Wt 100.8 kg
[~2018-09-06 09:52] MED LIST changes: -HYDR-653 PO
[2018-09-06] MEDS ORDERED: ACETAMINOPHEN 325 MG TAB PO ONE (10:15)
--- NOTE | 2018-09-06 10:23 | ER Report ---
History and Physical Time Seen By MD: 09:55 Hx. of Stated Complaint: pt fell yesterday. reports pain in low back bilaterally. pt does not know how long she was on the ground or if she hit her head, thinks she had loc HPI/ROS CHIEF COMPLAINT: Fall, back pain HISTORY OF PRESENT ILLNESS: 78-year-old female reports that she fell sometime early the morning of September 05. She believes it was dark outside. She does not know how long she was on the ground but she ultimately crawled into her bed. She does not know how she came to fall. She notes that she has had low back pain and pain radiating to both hips since then. Yesterday morning a neighbor came over and assisted her to the bathroom at approximately 10 AM. Patient states that she was assisted back into bed and has been in bed since that time. She called this morning because she still had continued pain which she thought would go away. EMS arrived and assisted her to the [facility]. She was able to bear weight with their assistance. She complains of ongoing severe back pain. There is no new weakness. There is no incontinence. There is no blood in the urine. She does not have shortness breath, chest pain, headache, nausea, vomiting. She has tried one ibuprofen this morning without relief. She has COPD and is on 2L 02, though per EMS her sats were in high 80's and she required 4L en route. REVIEW OF SYSTEMS: Constitutional: No fever, no chills. Eyes: no blurred vision ENT: No sore throat. Cardiovascular: No chest pain, no palpitations. Respiratory: No cough, no shortness of breath. Gastrointestinal: No abdominal pain, no vomiting. Genitourinary: No hematuria. Musculoskeletal: above Skin: No rashes. Neurological: No headache. Remainder of the 14 system rev: Yes Allergies: Coded Allergies: Penicillins (Unverified Allergy, Unknown, 09/12/16) Home Meds Active Scripts Hydrocodone Bit/Acetaminophen (NORCO 5-325 TABLET) 1 Each Tablet, 1 EACH PO Q6H PRN for pain, #10 TAB Prov:RAMSEY KELSEY MD 09/06/18 Lidocaine (Lidocaine) 5 % Adh..patch, 1 EACH TP QDAY, #14 PATCH Prov:KATHY GARCIAP 07/26/18 Tramadol Hcl (TRAMADOL HCL) 50 Mg Tablet, 1 TAB PO Q6H PRN for PAIN, #20 TAB Prov:GARCIA,KATHY Cristhian [employer] 07/26/18 Diphenhydramine Hcl (DIPHENHYDRAMINE HCL) 25 Mg Capsule, 25 MG PO Q6H PRN for allergic reaction, #30 CAPSULE Prov:FREDERICK ALBERTS MD 08/27/16 Epinephrine (EPIPEN 2-RJ) 0.3 Mg/0.3 Ml Pen.injctr, 0.3 MG IM ONLY Q5MIN PRN for increased tongue swelling, #1 BOX 6 Refills Prov:FREDERICK ALBERTS MD 08/27/16 Reported Medications Fluoxetine Hcl (FLUOXETINE HCL) 20 Mg Capsule, 40 MG PO QAM, CAPSULE 07/24/18 Hydroxyzine Hcl (HYDROXYZINE HCL) 50 Mg Tablet, 50 MG PO BID PRN for ANXIETY 07/24/18 Trazodone Hcl (TRAZODONE HCL) 100 Mg Tablet, 1-2 TAB PO HS PRN for sleep, TAB PRN PER RX AT [facility] 07/24/18 Levothyroxine Sodium (LEVOTHYROXINE SODIUM) 175 Mcg Tablet, 175 MCG PO QAM 07/24/18 Reviewed Nurses Notes: Yes Old Medical Records Reviewed: Yes Hx Smoking: No Smoking Status: Former Smoker Exposure to Second Hand Smoke?: No Hx Substance Use Disorder: Yes (pot) Hx Alcohol Use: Yes Constitutional Vital Sign - Last 24 Hours 09/06/18 09/06/18 09/06/18 09/06/18 09:53 09:55 10:00 10:07 Temp 98.5 Pulse 71 69 Resp 16 B/P (MAP) 154/107 154/107 (123) 165/103 (123) Pulse Ox 93 97 O2 Delivery Room Air 09/06/18 09/06/18 09/06/18 09/06/18 10:22 10:30 10:37 10:52 Pulse 68 63 ??? B/P (MAP) 126/99 (108) Pulse Ox 94 94 09/06/18 09/06/18 09/06/18 09/06/18 11:00 11:22 11:30 11:35 Pulse 59 ??? B/P (MAP) ???/??? (1665) 129/87 (101) Pulse Ox 96 09/06/18 09/06/18 09/06/18 09/06/18 11:50 11:53 12:00 12:05 Pulse ??? 62 B/P (MAP) 127/99 (108) 121/79 (93) Pulse Ox 92 09/06/18 09/06/18 09/06/18 09/06/18 12:20 12:30 12:35 13:00 Pulse 66 62 B/P (MAP) 123/89 (100) ???/??? (1665) Pulse Ox 94 95 09/06/18 09/06/18 13:05 13:20 Pulse 69 69 Pulse Ox 92 91 Physical Exam General Appearance: The patient is alert, has no immediate need for airway protection and no signs of toxicity. Eyes: Pupils equal and round no pallor or injection. ENT, Mouth: Mucous membranes are moist. Respiratory: There are no retractions, lungs are clear to auscultation. Cardiovascular: Regular rate and rhythm. Gastrointestinal: Abdomen is soft and non tender, no masses, bowel sounds normal. Neurological: alert, oriented x 3, moves all ext, no focal deficits Skin: Warm and dry, no rashes. No abrasions/contusions Musculoskeletal: Neck is supple non tender. Extremities are nontender, nonswollen and have full range of motion. Pt has ttp mid tspine, throughout l spine. She has bilateral hip ttp without deformity and with full active and passive ROM for age. 5/5 ms le bilaterally. No edema. pulses 2+ bilat DIFFERENTIAL DIAGNOSIS: After history and physical exam differential diagnosis was considered for T-spine fracture, L-spine fracture, pelvis fracture, rhabdomyolysis, or other complication of fall. Medical Decision Making Data Points Result Diagram: 09/06/18 1033 09/06/18 1033 Laboratory Hematology Test 09/06/18 10:33 09/06/18 11:40 Red Blood Count 5.41 M/uL (4.17-5.56) Mean Corpuscular Volume 87.2 fL (80.0-96.0) Mean Corpuscular Hemoglobin 28.2 pg (26.0-33.0) Mean Corpuscular Hemoglobin Concent 32.4 g/dL (32.0-36.0) Red Cell Distribution Width 14.3 % (11.5-14.5) Mean Platelet Volume 7.2 fL (7.2-11.1) Neutrophils (%) (Auto) 78.2 % (39.4-72.5) Lymphocytes (%) (Auto) 11.1 % (17.6-49.6) Monocytes (%) (Auto) 7.7 % (4.1-12.4) Eosinophils (%) (Auto) 2.4 % (0.4-6.7) Basophils (%) (Auto) 0.6 % (0.3-1.4) Nucleated RBC Relative Count (auto) 0.1 /100WBC Neutrophils # (Auto) 5.4 K/uL (2.0-7.4) Lymphocytes # (Auto) 0.8 K/uL (1.3-3.6) Monocytes # (Auto) 0.5 K/uL (0.3-1.0) Eosinophils # (Auto) 0.2 K/uL (0.0-0.5) Basophils # (Auto) 0.0 K/uL (0.0-0.1) Nucleated RBC Absolute Count (auto) 0.00 K/uL Sodium Level 137 mmol/L (137-145) Potassium Level 4.1 mmol/L (3.5-5.0) Chloride Level 104 mmol/L (98-107) Carbon Dioxide Level 25 mmol/L (22-31) Blood Urea Nitrogen 9 mg/dl (7-18) Creatinine 0.90 mg/dl (0.52-1.04) Glomerular Filtration Rate Calc > 60.0 Random Glucose 113 mg/dl (75-110) Calcium Level 8.8 mg/dl (8.4-10.2) Urine Color Yellow Urine Clarity Slightly-cloudy Urine pH 5.0 pH (4.8-9.5) Urine Specific [place] 1.021 Urine Protein Negative mg/dL (NEGATIVE) Urine Glucose (UA) Negative mg/dL (NEGATIVE) Urine Ketones Negative mg/dL (NEGATIVE) Urine Blood Negative (NEGATIVE) Urine Nitrite Negative (NEGATIVE) Urine Bilirubin Negative (NEGATIVE) Urine Urobilinogen Negative mg/dL (0.2-1.9) Urine Leukocyte Esterase Negative (NEGATIVE) Urine RBC 1 /HPF (0-2/HPF) Urine WBC 3 /HPF (0-5/HPF) Urine Squamous Epithelial Cells Moderate /LPF (NONE-FEW) Urine Bacteria Moderate /HPF (NONE-FEW) Urine Hyaline Casts Few /LPF (NONE-FEW) Urine Mucus Few /HPF (NONE-FEW) Chemistry Test 09/06/18 10:33 09/06/18 11:40 White Blood Count 6.9 k/uL (4.5-11.0) Red Blood Count 5.41 M/uL (4.17-5.56) Hemoglobin 15.3 g/dL (12.0-16.0) Hematocrit 47.2 % (34.0-47.0) Mean Corpuscular Volume 87.2 fL (80.0-96.0) Mean Corpuscular Hemoglobin 28.2 pg (26.0-33.0) Mean Corpuscular Hemoglobin Concent 32.4 g/dL (32.0-36.0) Red Cell Distribution Width 14.3 % (11.5-14.5) Platelet Count 221 K/uL (150-450) Mean Platelet Volume 7.2 fL (7.2-11.1) Neutrophils (%) (Auto) 78.2 % (39.4-72.5) Lymphocytes (%) (Auto) 11.1 % (17.6-49.6) Monocytes (%) (Auto) 7.7 % (4.1-12.4) Eosinophils (%) (Auto) 2.4 % (0.4-6.7) Basophils (%) (Auto) 0.6 % (0.3-1.4) Nucleated RBC Relative Count (auto) 0.1 /100WBC Neutrophils # (Auto) 5.4 K/uL (2.0-7.4) Lymphocytes # (Auto) 0.8 K/uL (1.3-3.6) Monocytes # (Auto) 0.5 K/uL (0.3-1.0) Eosinophils # (Auto) 0.2 K/uL (0.0-0.5) Basophils # (Auto) 0.0 K/uL (0.0-0.1) Nucleated RBC Absolute Count (auto) 0.00 K/uL Glomerular Filtration Rate Calc > 60.0 Calcium Level 8.8 mg/dl (8.4-10.2) Urine Color Yellow Urine Clarity Slightly-cloudy Urine pH 5.0 pH (4.8-9.5) Urine Specific [place] 1.021 Urine Protein Negative mg/dL (NEGATIVE) Urine Glucose (UA) Negative mg/dL (NEGATIVE) Urine Ketones Negative mg/dL (NEGATIVE) Urine Blood Negative (NEGATIVE) Urine Nitrite Negative (NEGATIVE) Urine Bilirubin Negative (NEGATIVE) Urine Urobilinogen Negative mg/dL (0.2-1.9) Urine Leukocyte Esterase Negative (NEGATIVE) Urine RBC 1 /HPF (0-2/HPF) Urine WBC 3 /HPF (0-5/HPF) Urine Squamous Epithelial Cells Moderate /LPF (NONE-FEW) Urine Bacteria Moderate /HPF (NONE-FEW) Urine Hyaline Casts Few /LPF (NONE-FEW) Urine Mucus Few /HPF (NONE-FEW) Urinalysis Test 09/06/18 11:40 Urine Color Yellow Urine Clarity Slightly-cloudy Urine pH 5.0 pH (4.8-9.5) Urine Specific [place] 1.021 Urine Protein Negative mg/dL (NEGATIVE) Urine Glucose (UA) Negative mg/dL (NEGATIVE) Urine Ketones Negative mg/dL (NEGATIVE) Urine Blood Negative (NEGATIVE) Urine Nitrite Negative (NEGATIVE) Urine Bilirubin Negative (NEGATIVE) Urine Urobilinogen Negative mg/dL (0.2-1.9) Urine Leukocyte Esterase Negative (NEGATIVE) Urine RBC 1 /HPF (0-2/HPF) Urine WBC 3 /HPF (0-5/HPF) Urine Squamous Epithelial Cells Moderate /LPF (NONE-FEW) Urine Bacteria Moderate /HPF (NONE-FEW) Urine Hyaline Casts Few /LPF (NONE-FEW) Urine Mucus Few /HPF (NONE-FEW) ED Course/Re-evaluation ED Course 78-year-old female presents one day after a fall with unclear mechanism. She has findings consistent with L3 compression fracture without evidence of acute neurologic findings. She has moderate pain in the emergency department however she is motivated to go home. We will manage pain and obtain TLSO brace with plan for discharge and orthopedic follow-up. There are no findings consistent with other fractures, she does not have evidence of rhabdomyolysis. Rpt exam shows pt ambulates at baseline with walker; she has TLSO brace in place and has been given instructions; she has intact strength and sensation in lower extremities bilaterally. Pt is to call Dr. Mandel' office for folow up. She understands [facility]'s. Decision to Disposition Date: Sep 06, 2018 Decision to Disposition Time: 12:00 Depart Departure Latest Vital Signs Vital Signs Date Time Temp Pulse Resp B/P (MAP) Pulse Ox O2 Delivery O2 Flow Rate FiO2 09/06/18 13:20 69 91 09/06/18 13:00 ???/??? (1665) 09/06/18 09:53 98.5 16 Room Air Impression: Primary Impression: Lumbar compression fracture Condition: Improved Disposition: HOME OR SELF-CARE Referrals: CHRISSY PEARCE DO (PCP) 2 Days SHWETA MANDEL MD 1 Week call to arrange follow up New Scripts Hydrocodone Bit/Acetaminophen (NORCO 5-325 TABLET) 1 Each Tablet 1 EACH PO Q6H PRN for pain, #10 TAB Prov: RAMSEY KELSEY MD 09/06/18 Patient Instructions: Lumbar Brace (DC), Vertebral Compression Fracture (ED) Additional Instructions: Follow-up with orthopedic surgery by calling for a follow up appointment. Please return for new weakness or uncontrolled pain or any concerns. Also, please follow up with your primary doctor for incidental findings found on her images. These include a pulmonary nodule and an ovarian cyst, both which will require follow-up and repeat imaging to be arranged by your primary doctor. You must take a stool softener if taking [place], to prevent constipation. I recommend taking miralax as recommended on the bottle. Problem Qualifiers Primary Impression: Lumbar compression fracture Encounter type: initial encounter Lumbar vertebra fracture level: L3 Fracture type: closed Qualified Codes: S32.030A - Wedge compression fracture of third lumbar vertebra, initial encounter for closed fracture RAMSEY KELSEY MD Sep 06, 2018 10:23
[2018-09-06 10:40] LABS: PLATELET COUNT, AUTOMATED 221 K/uL (150-450)
--- NOTE | 2018-09-06 11:34 | RADIOLOGY IMAGING REPORT ---
[facility] PATIENT NAME: Ankita Rivera : 1940 MR: [id number] V: [id number] EXAM DATE: ORDERING PHYSICIAN: RAMSEY KELSEY TECHNOLOGIST: Location: [facility] [place] Patient: Ankita Rivera : 1940 Visit/Account:[id number] Date of Sevice: 09/06/2018 EXAMINATION: CT Thoracic spine without intravenous contrast HISTORY: Fall, pain COMPARISON: None. TECHNIQUE: Axial images were obtained through the thoracic spine without IV contrast administration. Coronal and sagittal reformatted images were generated from the source data. One of the following dose optimization techniques was utilized in the performance of this exam: autom ated exposure control; adjustment of the mA and/or kV according to patient size; or use of iterative reconstruction technique. Specific details can be referenced in the facility's radiology CT exam ope rational policy. FINDINGS: Alignment: Normal. Vertebral bodies and posterior elements: Normal vertebral body heights. No fracture. T9 benign vert ebral body hemangioma noted. Hardware: None. Disc Spaces: Mild T8-9 disc space degeneration. Soft tissues: No significant abnormality. Visualized lungs / abdomen: 3 mm left upper lobe nodule, image 103. Postinflammatory slightly nodula r biapical pleural-parenchymal scarring. Mild emphysema. 3 mm peripheral right upper lobe nodule, i mage 119. IMPRESSION: 1. No acute thoracic spine abnormality. 2. Mild emphysema. 3. Bilateral 3 mm upper lobe pulmonary nonspecific nodules which may be postinflammatory. Given pre sence of emphysema follow-up CT may be warranted to document stability based on Fleischner criteria d escribed below. FLEISCHNER SOCIETY FOLLOW-UP GUIDELINES FOR NEWLY DETECTED INCIDENTAL NODULES IN PERSONS 35 YEARS OF AGE OR OLDER. *These recommendations do NOT apply to lung cancer screening, patients with immunosuppression or [place] ents with a known primary malignancy. MULTIPLE SOLID NODULES If nodule size is < 6 mm: * Low risk patient ? No routine follow-up. * High risk patient ? Optional CT at 12 months. If nodule size is 6-8 mm: * Low risk patient ? CT at 3-6 months, then consider CT at 18-24 months if no change. * High risk patient ? CT at 3-6 months, then CT at 18-24 months if no change. If nodule size is > 8 mm: * Low risk patient ? CT at 3-6 months, then consider CT at 18-24 months if no change. * High risk patient ? CT at 3-6 months, then consider CT at 18-24 months if no change. LOW RISK PATIENT: Minimal or absent history of tobacco use and of other known risk factors. HIGH RISK PATIENT: Tobacco use, family history of lung cancer, upper pulmonary lobe location of nodul e, presence of emphysema, pulmonary fibrosis, older age. Jacki H, Alicia DP, Morris RANDALL, et al. Guidelines for Management of Incidental Pulmonary Nodules Dete cted on CT Images: From the Fleischner Society 2017. Radiology. Report Dictated By: Javier Duffy MD at 09/06/2018 11:22 AM Report E-Signed By: Javier Duffy MD at 09/06/2018 11:30 AM WSN:[email or web address]
--- NOTE | 2018-09-06 11:41 | RADIOLOGY IMAGING REPORT ---
FACILITY: [facility] PATIENT NAME: Ankita Rivera : 1940 MR: [id number] V: [id number] EXAM DATE: ORDERING PHYSICIAN: RAMSEY KELSEY TECHNOLOGIST: [place] [facility] [place] Ankita Rivera : 1940 Visit/Account:[id number] Date of Sevice: 09/06/2018 EXAMINATION: CT Lumbar spine without intravenous contrast HISTORY: Fall COMPARISON: 07/13/[address] and abdomen and pelvis CT August 08, 2018 TECHNIQUE: Axial images were obtained through the lumbar spine without IV contrast administration. C oronal and sagittal reformatted images were generated from the source data. One of the following dose optimization techniques was utilized in the performance of this exam: autom ated exposure control; adjustment of the mA and/or kV according to patient size; or use of iterative reconstruction technique. Specific details can be referenced in the facility's radiology CT exam ope rational policy. FINDINGS: Alignment: Normal. Vertebral bodies and posterior elements: Chronic L2 wedge compression deformity with greater than 50% central vertebral body height loss. This vertebral body has lost height when compared to prior. Li rachna chronic buckling of the posterior upper L2 cortex is new and results in no significant canal taniya rowing. Minimal new L3 wedge compression deformity with an acute fracture lucency within the inferior left of the L3 vertebral body, coronal image 42. Moderate L3-4 facet arthropathy. Disc Spaces: Moderate L4-5 and severe L5-S1 unchanged disc space degeneration. Hardware: None. Visualized retroperitoneal/abdominal structures: Right renal cysts. Sigmoid colonic surgical suture line. Partially imaged left ovarian cyst measures 2.9 cm. IMPRESSION: 1. Acute L3 wedge compression fracture with minimal vertebral body height loss. 2. Chronic unchanged L2 wedge compression deformity compared to most recent abdomen and pelvis CT. This vertebral body has lost height when compared to the [address] comparison. 3. Partially imaged nonspecific 2.9 cm left ovarian cyst appears slightly increased in size allowing for scan differences compared to the most recent abdomen and pelvis CT. Follow-up pelvic ultrasound may be warranted for further characterization to ensure this represents a simple cyst given patient age. Report Dictated By: Javier Duffy MD at 09/06/2018 11:30 AM Report E-Signed By: Javier Duffy MD at 09/06/2018 11:38 AM WSN:[email or web address]
--- NOTE | 2018-09-06 11:49 | RADIOLOGY IMAGING REPORT ---
FACILITY: [facility] PATIENT NAME: Ankita Rivera : 1940 MR: [id number] V: [id number] EXAM DATE: ORDERING PHYSICIAN: RAMSEY KELSEY TECHNOLOGIST: Location: [facility] Patient: Ankita Rivera : 1940 Visit/Account:[id number] Date of Sevice: 09/06/2018 Portable chest, one view. HISTORY: Fall, tender to palpation throughout back. COMPARISON: 08/24/2016. The aortic knob is mildly calcified. The heart and mediastinum are otherwise unremarkable. Pulmonar y vessels are unremarkable. Interstitial markings are mildly thickened bilaterally, unchanged. The lungs are otherwise clear. The pleural surfaces are unremarkable. No pneumothorax. No acute bony abn ormalities are identified. IMPRESSION: No evidence of acute cardiopulmonary disease. Report Dictated By: Ta Rivera MD at 09/06/2018 11:42 AM Report E-Signed By: Ta Rivera MD at 09/06/2018 11:44 AM WSN:[email or web address]
--- NOTE | 2018-09-06 11:50 | RADIOLOGY IMAGING REPORT ---
FACILITY: [facility] PATIENT NAME: Ankita Rivera : 1940 MR: [id number] V: [id number] EXAM DATE: ORDERING PHYSICIAN: RAMSEY KELSEY TECHNOLOGIST: Location: [facility] Patient: Ankita Rivera : 1940 Visit/Account:[id number] Date of Sevice: 09/06/2018 AP pelvis, one view, left hip, one view, and right hip, one view. HISTORY: Fall. COMPARISON: 06/12/2016. Foreshortening of the femoral necks probably due to positioning of the patient. Minimal joint space narrowing is present in both hips. Mild chronic appearing cortical irregularities are present along the greater trochanters. 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 Platelets are present in the true pelvis. Th e sacroiliac joints are not widened. Degenerative changes are present in the lower lumbar spine. An old bone graft donor site is present along the right iliac crest. IMPRESSION: Negative for acute bony abnormality. Report Dictated By: Ta Rivera MD at 09/06/2018 11:44 AM Report E-Signed By: Ta Rivera MD at 09/06/2018 11:47 AM WSN:[email or web address]
[2018-09-06] MEDS ORDERED: MORPHINE 2 MG/ML SYR IVP ONE (12:15)
[2018-09-06] MEDS ORDERED: HYDR-653 PO (13:21)
== END 2018-09-06 13:27 | disposition home or self-care (01) ==
LOC: ER 09:58 → CANBEDREQ 10:31 → ER 13:27
DX: S32.030A Wedge compression fracture of third lumbar vertebra, initial encounter for closed fracture (principal)
CPT/HCPCS: 36415; 71045; 72128; 72131; 73522; 81001; 85025; 96374; 99284; A4353; A9270; J2270; 82310; 82374; 82435; 82565; 82947; 84132; 84295; 84520

== ENCOUNTER → 2018-09-06 | Outpatient (CLI) | payer MEDICARE, MEDICAID ==
[2018-07-25 16:55] VITALS: BMI 39.3
[~2018-09-06] MED LIST changes: +HYDR-653 PO; -IOPAMIDOL 76% 100 ML INFUS BTL 100 ML ONE
== END ==
LOC: AMB 09:30
PROVIDERS: ATTEND Nurse Practitioner
DX: M54.5 Low back pain (principal); S09.90XA Unspecified injury of head, initial encounter; W18.30XA Fall on same level, unspecified, initial encounter
CPT/HCPCS: A0425; A0427

== ENCOUNTER → 2018-09-06 | Outpatient (CLI) | payer MEDICARE, MEDICAID ==
[2018-07-25 16:55] VITALS: BMI 39.3
== END ==
LOC: AMB 13:15
PROVIDERS: ATTEND Nurse Practitioner
DX: M54.5 Low back pain (principal); Z74.01 Bed confinement status
CPT/HCPCS: A0425; A0428